=== PATIENT | male | born 1960 | race Caucasian/White ===

== ENCOUNTER 2018-01-31 08:03 | Emergency (ER) | payer SELFPAY ==
[~2018-01-31] VITALS: Ht 180.3 cm; Wt 74.8 kg
[~2018-01-31 08:03] MED LIST: ALPR0.5T6 PO; ASPI-630 PO; ATORVASTATIN CA80 MG PO; CARV3.1210 PO; CLOP75TA PO; ESOM40CA PO; GLIM2TAB2 PO; HYDR12.58 PO; METF10007 PO; OMEG1CAP6 PO; OXYC1TAB15 PO; PREG150C PO; SITA50TA PO
--- NOTE | 2018-01-31 08:25 | PHYS DOC ---
Past Medical History Past Medical History: Diabetes-Type I, High Cholesterol, ID, Other Additional Past Medical Histor: NEUROPATHY, HAND CONTRACTURES Past Surgical History: Other Additional Past Surgical Histo: STENTS PLACED, QUINTUPLE BYPASS, RIGHT WRIST SURGERY, BACK SURGERY Alcohol Use: None Drug Use: None Adult General Chief Complaint Chief Complaint: URINARY RETENTION HPI HPI Patient is a 57 year old male presents for evaluation of urinary retention since yesterday. He reports several days of decreased urine output but has been unable to urinate this morning. States he had similar symptoms 5 years ago, had alexander catheter placed, saw urologist but after it was removed he no longer had any problems. He denies dysuria or urethral discharge. Review of Systems Review of Systems Constitutional: Denies fever or chills [] Eyes: Denies change in visual acuity, redness, or eye pain [] HENT: Denies nasal congestion or sore throat [] Respiratory: Denies cough or shortness of breath [] Cardiovascular: No additional information not addressed in HPI [] GI: +SUPRAPUBIC abdominal pain : +RETENTION Musculoskeletal: Denies back pain or joint pain [] Integument: Denies rash or skin lesions [] Neurologic: Denies headache, focal weakness or sensory changes [] Endocrine: Denies polyuria or polydipsia [] All other systems were reviewed and found to be within normal limits, except as documented in this note. Current Medications Current Medications Current Medications Medications (Trade) Dose Ordered Sig/[facility] Start Time Stop Time Status Last Admin Dose Admin Lidocaine HCl (Glydo (Lidocaine) Jelly) 1 maria 1X ONCE 01/31/18 08:45 01/31/18 08:46 DC 01/31/18 08:52 1 MARIA Allergies Allergies Allergies Coded Allergies Type Severity Reaction Last Updated Verified No Known Drug Allergies 01/23/18 No Physical Exam Physical Exam Constitutional: Well developed, well nourished, no acute distress, non-toxic appearance. [] Cardiovascular:Heart rate regular rhythm, no murmur [] Lungs & Thorax: Bilateral breath sounds clear to auscultation [] Abdomen: Bowel sounds normal, soft, + SUPRAPUBIC TTP, no masses, no pulsatile masses. [] Skin: Warm, dry, no erythema, no rash. [] Back: No tenderness, no CVA tenderness. [] Extremities: No tenderness, no cyanosis, no clubbing, ROM intact, no edema. [] Neurologic: Alert and oriented X 3, normal motor function, normal sensory function, no focal deficits noted. [] Psychologic: Affect normal, judgement normal, mood normal. [] Current Patient Data Vital Signs Vital Signs Date Time Temp Pulse Resp B/P (MAP) Pulse Ox O2 Delivery O2 Flow Rate FiO2 01/31/18 09:47 76 14 94 01/31/18 08:07 98.0 108/55 (72) Room Air 98.0 Lab Values Laboratory Tests Test 01/31/18 09:00 Urine Collection Type Unknown Urine Color Yellow Urine Clarity Clear Urine pH 6.5 Urine Specific [place] 1.015 Urine Protein Negative mg/dL (NEG-TRACE) Urine Glucose (UA) Negative mg/dL (NEG) Urine Ketones (Stick) Negative mg/dL (NEG) Urine Blood Negative (NEG) Urine Nitrite Negative (NEG) Urine Bilirubin Negative (NEG) Urine Urobilinogen Dipstick 1.0 mg/dL (0.2 mg/dL) Urine Leukocyte Esterase Negative (NEG) Urine RBC 0 /HPF (0-2) Urine WBC 0 /HPF (0-4) Urine Squamous Epithelial Cells Few /LPF Urine Bacteria 0 /HPF (0-FEW) EKG EKG [] Radiology/Procedures Radiology/Procedures [] Course & Med Decision Making Course & Med Decision Making Pertinent Labs and Imaging studies reviewed. (See chart for details) [550 ML URINE IN BLADDER ON SCAN, ALEXANDER CATHETER/LEG BAG PLACED BY NURSING STAFF , REFERRED FOR UROLOGY FOLLOW UP, URINE SAMPLE CLEAN ] Staff Physician Addendum: I was working in the ER during the course of this patient's visit. I was available for consultation as needed, but I was not directly involved in the care of this patient. Dragon Disclaimer Dragon Disclaimer This electronic medical record was generated, in whole or in part, using a voice recognition dictation system. Departure Departure Impression: Primary Impression: Acute urinary retention Disposition: 01 HOME, SELF-CARE Condition: STABLE Referrals: UNKNOWN PCP NAME (PCP) ISAI AMADOR MD Patient Instructions: Urinary Retention, Acute, Male, [id number] ABELARDO CROUCH APRN Jan 31, 2018 08:25 NIXON BURGESS MD Jan 31, 2018 15:20
[2018-01-31] MEDS ORDERED: LIDOCAINE 2% JELLY 6ML IN APPLICATOR. MM ONE (08:45)
[2018-01-31 09:29] LABS: BILIRUBIN,URINE NEGATIVE (NEG); CLARITY,URINE CLEAR; COLOR,URINE YELLOW; NITRITE,URINE NEGATIVE (NEG); PH,URINE 6.5; PROTEIN,URINE NEGATIVE (NEG-TRACE)
[2018-01-31 09:41] LABS: BACTERIA,URINE 0 /HPF (0-FEW); RBC,URINE 0 /HPF (0-2); SQUAMOUS EPITHELIAL CELL,UR FEW /LPF; WBC,URINE 0 /HPF (0-4)
[2018-01-31 09:47] VITALS: BP 97/56
== END 2018-01-31 10:07 | disposition home or self-care (01) ==
LOC: ER 08:03
DX: R33.9 Retention of urine, unspecified (principal); E78.00 Pure hypercholesterolemia, unspecified; I25.2 Old myocardial infarction; E10.40 Type 1 diabetes mellitus with diabetic neuropathy, unspecified
CPT/HCPCS: 51702; 81001; 99284